=== PATIENT | male | born 1950 | race Caucasian/White ===

== ENCOUNTER 2018-03-30 09:35 | Outpatient (CLI) | payer OTHER | END 2018-03-30 09:50 | disposition home or self-care (01) | LOC: SONOGRAMA 09:35 | DX: E04.1 Nontoxic single thyroid nodule (principal) ==

== ENCOUNTER → 2022-08-25 | Emergency (ER) | payer OTHER ==
[~2022-08-25] VITALS: Ht 170.2 cm; Wt 73.5 kg
[~2022-08-25] MED LIST: LIPITOR20 MG PO; LOSARTAN POTAS100 MG PO; METOPROLOL SUCC25 MG PO; METOPROLOL SUCC50 MG PO; SYNTHROID50 MCG PO
== END | disposition home or self-care (01) ==
LOC: ER 10:35
DX: K62.5 Hemorrhage of anus and rectum (principal); E78.00 Pure hypercholesterolemia, unspecified; E03.9 Hypothyroidism, unspecified; I10 Essential (primary) hypertension